=== PATIENT | male | born 1975 | race Caucasian/White ===

== ENCOUNTER 2019-12-27 18:17 | Emergency (ER) | payer MEDICAID ==
--- NOTE | 2019-12-27 18:30 | EDM.PDOC ---
ED HPI GENERAL MEDICAL PROBLEM - General Chief Complaint: Laceration Stated Complaint: LACERATION Time Seen by Provider: 12/27/19 18:20 Source of Information: Reports: Patient History Limitations: Reports: No Limitations - History of Present Illness INITIAL COMMENTS - FREE TEXT/NARRATIVE: Patient states while throwing a log into a metal heater it was smashed between a piece of metal in the log to his right third finger occurred about 30 minutes prior to arrival he denies any numbness or tingling loss of sensation decreased range of motion that is a dull throbbing 7 out of 10. He has no medical problems tetanus is up-to-date no other complaints at this time Onset: Sudden Duration: Minutes: Severity: Moderate Associated Symptoms: Reports: No Other Symptoms Right Finger-Middle Pain Score (Numeric/FACES): 7 - Related Data Allergies Allergy/AdvReac Type Severity Reaction Status Date / Time clindamycin Allergy Bleeding Verified 12/27/19 18:28 Home Meds: Home Meds . [No Known Home Meds] 12/27/19 [History] Review of Systems - Review of Systems Review Of Systems: See Below Constitutional: Reports: No Symptoms GI/Abdominal: Reports: No Symptoms Genitourinary: Reports: No Symptoms Musculoskeletal: Reports: Hand Pain. Denies: Joint Pain, Joint Swelling Skin: Reports: No Symptoms Neurological: Reports: No Symptoms. Denies: Numbness, Paresthesia, Tingling, Weakness Psychiatric: Reports: No Symptoms ED EXAM, GENERAL - Physical Exam Exam: See Below Exam Limited By: No Limitations General Appearance: Alert, WD/WN, No Apparent Distress Extremities: Normal Inspection, Normal Range of Motion, Normal Capillary Refill , Other (Exam to the right third finger patient has a 1 cm x 2 mm x 1 mm linear laceration from the top of the distal phalange E down to the lateral nail that does not involve the bed fingernail is intact but is loose with a subungual hematoma blood draining from the side he has normal FDS FDP with extension equal soft touch sensation normal cap refill there are no other injuries has normal opposition abduction abduction). No: Non-Tender Neurological: Alert, Oriented, CN II-XII Intact, Normal Cognition, Normal Gait, No Motor/Sensory Deficits Psychiatric: Normal Affect, Normal Mood Skin Exam: Warm, Dry, Normal Color, No Rash. No: Intact Course - Vital Signs Text/Narrative:: X-ray of the digit is performed secondary to rule out open fracture Laceration will be soaked with normal saline Betadine cleaned and irrigated with normal saline and with Hibiclens closed with number of 1 5-0 Ethilon simple mattress sutures covered with Neosporin Telfa pad Kerlix splinted with aluminum foam splint fourth digit was splinted with foam splint as well open fracture of the third digit PIP along with a closed fracture fourth digit DIP Patient was given signs and symptoms of infection with need to return to the emergency room patient is to follow-up primary care provider in 24 to 48 hours for wound check Discussed with the patient keep the area clean with warm soapy water change bandages every day twice daily after the first 24 hours Patient was given 1 g Ancef IM Keflex 500 mg 1 p.o. every 6 hours x10 days he was given 1 now 1 to home instructed to follow-up with Dr. Lawler hand orthopedic doctor 10:30 AM in the office tomorrow Gives verbal understanding for need for follow-up wound instructions Last Recorded V/S: Last Vital Signs Temp 36.5 C 12/27/19 18:17 Pulse 102 H 12/27/19 18:17 Resp 18 12/27/19 18:17 BP 114/75 12/27/19 18:17 Pulse Ox 98 12/27/19 18:17 - Orders/Labs/Meds Orders: Active Orders 24 hr Category Date Time Status Bupivacaine 0.5% [Marcaine 0.5%] Med 12/27/19 19:24 Ordered 30 ml INJECT ASDIRECTED PRN Medication Orders Bupivacaine HCl (Marcaine 0.5%) 30 ml INJECT ASDIRECTED PRN PRN Reason: Other Last Admin: 12/27/19 19:30 Dose: 30 ml Meds: Medications Generic Name Dose Route Start Last Admin Trade Name Freq PRN Reason Stop Dose Admin Bupivacaine HCl 30 ml 12/27/19 19:24 12/27/19 19:30 Marcaine 0.5% INJECT 30 ml ASDIRECTED PRN Administration Other Discontinued Medications Generic Name Dose Route Start Last Admin Trade Name Freq PRN Reason Stop Dose Admin Hydrocodone Bitart/Acetaminophen 1 packet 12/27/19 19:10 12/27/19 19:24 Take Home: Acetam/Hydrocodon 325-5 Mg, 5 Pack PO 12/27/19 19:11 1 packet ONETIME ONE Administration Cefazolin Sodium 1 gm 12/27/19 18:45 12/27/19 19:05 Ancef IM 12/27/19 18:46 1 gm ONETIME ONE Administration Cephalexin 500 mg 12/27/19 19:08 12/27/19 19:24 Keflex PO 12/27/19 19:09 500 mg ONETIME ONE Administration Cephalexin 2 packet 12/27/19 19:09 12/27/19 19:24 Take Home: Cephalexin 500 Mg, 4 Cap Pack PO 12/27/19 19:10 2 packet ONETIME ONE Administration Trimethoprim/Sulfamethoxazole 1 packet 12/27/19 18:41 12/27/19 19:07 Take Home: Sulfameth/Trimet 800-160mg, 2 Pack PO 12/27/19 18:42 Not Given ONETIME ONE Departure - Departure Time of Disposition: 21:00 Disposition: Home, Self-Care 01 Condition: Good Clinical Impression: Finger laceration, Fingertip contusion, Open fracture of finger of right hand - Discharge Information *PRESCRIPTION DRUG MONITORING PROGRAM REVIEWED*: No *COPY OF PRESCRIPTION DRUG MONITORING REPORT IN PATIENT ELENI: No Referrals: Wiliam Coleman MD [Primary Care Provider] - Forms: ED Department Discharge Additional Instructions: Keep the laceration clean wash it with warm soapy water at least twice a day keep it bandaged and dry for the first 3 days Follow-up in the morning at [address] Lawler's office the hand surgeon's address is [address] [place] [address] in [place] his office number is [phone] Do not miss this appointment if anything changes or gets worse return to the emergency room tonight Watch for any redness swelling increased pain discharge heat to the fingers or hand if any of the symptoms return to the emergency room or to your primary care provider as soon as possible Take your antibiotics Keflex 500 mg 1 p.o. every 6 hours x10 days Sepsis Event Note - Focused Exam Vital Signs: Vital Signs Temp Pulse Resp BP Pulse Ox 12/27/19 18:17 36.5 C 102 H 18 114/75 98 Date Exam was Performed: 12/27/19 Time Exam was Performed: 21:06 - Problem List & Annotations (1) Fingertip contusion SNOMED Code(s): 89570676 Code(s): S60.00XA - CONTUSION OF UNSP FINGER WITHOUT DAMAGE TO NAIL, INIT ENCNTR Status: Acute Current Visit: No (2) Finger laceration SNOMED Code(s): 929584527 Code(s): S61.219A - LACERATION W/O FB OF UNSP FINGER W/O DAMAGE TO NAIL, INIT Status: Acute Current Visit: No (3) Open fracture of finger of right hand SNOMED Code(s): 54631052, 114318382 Code(s): S62.609B - FRACTURE OF UNSP PHALANX OF UNSP FINGER, INIT FOR OPN FX Status: Acute Current Visit: Yes - My Orders Last 24 Hours: My Active Orders 12/27/19 19:24 Bupivacaine 0.5% [Marcaine 0.5%] 30 ml INJECT ASDIRECTED PRN - Assessment/Plan Last 24 Hours: My Active Orders 12/27/19 19:24 Bupivacaine 0.5% [Marcaine 0.5%] 30 ml INJECT ASDIRECTED PRN
[2019-12-27] MEDS ORDERED: ceFAZolin 1 GM Vial IM ONE (18:45)
[2019-12-27] MEDS: Take Home: Sulfamethoxazole/Trimethoprim 800-160 MG Tab, 2 Tab Pack PO ONE ×2 (19:06→19:07)
[2019-12-27] MEDS ORDERED: Cephalexin 500 MG Cap PO ONE (19:08)
[2019-12-27] MEDS ORDERED: Take Home: Cephalexin 500 MG Cap, 4 Cap Pack PO ONE (19:09)
[2019-12-27] MEDS ORDERED: Take Home: Acetaminophen/HYDROcodone 325-5 MG, 5 Tab Pack PO ONE (19:10)
--- NOTE | 2019-12-27 19:15 | CR ---
[id number] RAD/RAD Fingers Right Exam: RAD Fingers Right Indication:RULE OUT FRACTURE 2ND LACERATION. Comparison: No prior imaging for comparison. Discussion: Acute nondisplaced obliquely orientated fractures of the 3rd and 4th digit distal phalanges. Fractures are centered in the terminal dennis. There are associated soft tissue lacerations. The adjacent interphalangeal joints are intact. Impression: As above. Kar Velasquez MD 12/27/19 1914 Thank you for allowing us to participate in the care of your patient.
[2019-12-27] MEDS ORDERED: Bupivacaine 0.5% 30 ML SDV INJECT PRN (19:24)
== END 2019-12-27 21:20 | disposition home or self-care (01) ==
LOC: VM.ED 18:17
DX: S62.612B Displaced fracture of proximal phalanx of right middle finger, initial encounter for open fracture (principal); S62.634A Displaced fracture of distal phalanx of right ring finger, initial encounter for closed fracture; S60.131A Contusion of right middle finger with damage to nail, initial encounter; Z88.1 Allergy status to other antibiotic agents; W45.8XXA Other foreign body or object entering through skin, initial encounter; Y93.89 Activity, other specified
CPT/HCPCS: 12001; 73140; 96374; 99282; A9270; J0690; J3490

== ENCOUNTER 2020-01-01 19:45 | Emergency (ER) | payer MEDICAID ==
--- NOTE | 2020-01-01 20:54 | EDM.PDOC ---
ED HPI GENERAL MEDICAL PROBLEM - General Chief Complaint: Upper Extremity Injury/Pain Stated Complaint: POST SURG Time Seen by Provider: 01/01/20 19:50 Source of Information: Reports: Patient History Limitations: Reports: No Limitations - History of Present Illness INITIAL COMMENTS - FREE TEXT/NARRATIVE: Pt. presents to ER with post op complaints. He had an open fracture of the 3rd and 4th distal finger involving the nail matrix. He had a nail matrix repair and debridement as an outpatient on 12/28/2019. Both fingernails were removed and were temporarily sutured over the top of the repaired nail matrices. The fingers were splined with a fiberglas splint. Dressings were applied. He states that he is concerned because there was some bleeding from the fingers through the dressing on 12/30/2019. He was seen at the hand surgery clinic but the area was not visualized and the patient was reassured. He states that he has been working in his workshop and has been continuing to experience discomfort. He is concerned that possibly the sutures have pulled out of the fingers. Pt. presented to ER and spoke to nursing this AM. He was reassured, but presents to ER again tonight, mandating that the fingers be evaluated. Denies any fever or chills. The fingers are bandaged, but no erythema noted proximal to the dressing. He has not noticed any fresh bleeding or discharge from the area. Onset Date: 12/30/19 Location: Reports: Upper Extremity, Right Quality: Reports: Sharp, Throbbing Improves with: Reports: Rest Worsens with: Reports: Movement Right Hand Pain Score (Numeric/FACES): 6 - Related Data Allergies Allergy/AdvReac Type Severity Reaction Status Date / Time clindamycin Allergy Bleeding Verified 01/01/20 19:50 Home Meds: Home Meds Ibuprofen 1 tab PO QID PRN 01/01/20 [History] cephALEXin [Cephalexin] 1 tab PO QID 01/01/20 [History] Past Medical History - Past Health History Medical/Surgical History: Denies Medical/Surgical History - Past Surgical History Musculoskeletal Surgical History: Reports: Other (See Below) Other Musculoskeletal Surgeries/Procedures:: surgery on fingers Social & Family History - Tobacco Use Smoking Status *Q: Current Every Day Smoker Years of Tobacco use: 20 Packs/Tins Daily: 0.5 ED ROS GENERAL - Review of Systems Review Of Systems: Comprehensive ROS is negative, except as noted in HPI. ED EXAM, GENERAL - Physical Exam Exam: See Below Exam Limited By: No Limitations General Appearance: Alert, WD/WN, No Apparent Distress Extremities: Other (All sutures appear to be in place. There is some beginning granulation tissure formation noted along the edge of the incisions. No erythema noted to the area. No discharge noted from the area. ROM is diminished due to discomfort but present. No obvious signs of infection noted.) Course - Vital Signs Last Recorded V/S: Last Vital Signs Temp 36.8 C 01/01/20 19:54 Pulse 98 01/01/20 19:54 Resp 16 01/01/20 19:54 BP 149/99 H 01/01/20 19:54 Pulse Ox 95 01/01/20 19:54 Departure - Departure Time of Disposition: 20:58 Disposition: Home, Self-Care 01 Clinical Impression: Post-op pain - Discharge Information Instructions: Nail Bed Injury, [id number] Referrals: PCP,None [Primary Care Provider] - Forms: ED Department Discharge Additional Instructions: Keep hand dry and clean. Do not do any lifting with the hand (no more than a half gallon of milk). Continue with Keflex. Ibuprofen as needed for discomfort. Follow-up with hand surgeon next week. It will heal much better if you do not smoke. Sepsis Event Note - Evaluation Sepsis Screening Result: No Definite Risk - Focused Exam Vital Signs: Vital Signs Temp Pulse Resp BP Pulse Ox 01/01/20 19:54 36.8 C 98 16 149/99 H 95 Date Exam was Performed: 01/01/20 Time Exam was Performed: 20:44 - Assessment/Plan Plan: Pt. was reassured. No obvious infection noted. Fingers were redressed with xeroform, 4x4s, alia, and coban. Splint reapplied with ARAMIS wrap. He was advised to not lift anything at possible, but certainly not more than a half gallon of milk. His dressing was quite dirty, and it appeared that he had been using the extremity. This was discouraged. He was advised to abstain from smoke if at all possible (he states that he smokes "sometimes"). Continue with the keflex and his pain meds. Follow-up next week with Dr. Lawler.
== END 2020-01-01 20:39 | disposition home or self-care (01) ==
LOC: VM.ED 19:45
DX: G89.18 Other acute postprocedural pain (principal); F17.210 Nicotine dependence, cigarettes, uncomplicated; Z88.1 Allergy status to other antibiotic agents
CPT/HCPCS: 99283